=== PATIENT | female | born 2000 | race American Indian/Alaskan Native ===

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

== ENCOUNTER 2022-01-26 21:56 | Emergency (ER) | payer SELFPAY ==
[2022-01-26 22:05] VITALS: BP 135/70
[2022-01-26] MEDS ORDERED: ACETAMINOPHEN 325 MG TAB PO ONE (22:07)
== END 2022-01-27 06:35 | disposition left against medical advice (07) ==
LOC: ED 21:56
DX: O26.891 Other specified pregnancy related conditions, first trimester (principal); R51.9 Headache, unspecified; J02.9 Acute pharyngitis, unspecified; Z3A.14 14 weeks gestation of pregnancy